=== PATIENT | female | born 1955 | race Caucasian/White ===

== ENCOUNTER 2017-03-21 12:00 | Emergency (ER) | payer OTHER ==
--- NOTE | 2017-03-21 13:06 | RAD ---
03/21/2017 1:00 PM CHEST - 2 VIEWS History: Cough, shortness of breath. Comparison: 03/17/2017 Findings: Two views of the chest are obtained. The lungs again demonstrate an area of density within the right midlung. This is not significantly changed from prior study with a few days ago The cardiomediastinal silhouette is unremarkable.. The osseous structures again demonstrate the wedge compression deformity of midthoracic vertebra. IMPRESSION: Fairly stable appearance to the density within the right midlung. Follow-up exam in 6-8 weeks' would be recommended to demonstrate radiographic clearance.
[2017-03-21] MEDS ORDERED: IPRATROPIUM BROMIDE 0.5 MG/2.5 ML DOSE ONE (13:40)
[2017-03-21] MEDS ORDERED: ALBUTEROL SULFATE 5MG/ML INHALANT 20 ML BOT ONE (13:40)
[2017-03-21 13:47] LABS: ALB/GLOB RATIO 1.2 (>1.0); ALBUMIN 4.2 gm/dL (3.5-5.7); CALCIUM 9.5 mg/dL (8.6-10.3)
== END 2017-03-21 14:20 | disposition home or self-care (01) ==
LOC: ED 12:00
DX: J20.9 Acute bronchitis, unspecified (principal); R53.1 Weakness; Z87.891 Personal history of nicotine dependence
CPT/HCPCS: 83880; 85379; 80053; 84484; 71020; 94644; 99284; 93005; 99283; J7645